=== PATIENT | male | born 1985 | race African-American/Black ===

== ENCOUNTER 2020-02-04 19:27 | Emergency (ER) | payer OTHER ==
[2020-02-04] MEDS ORDERED: MAG HYDROX/AL HYDROX/SIMETH SUSP 30 ML UDCUP PO ONE (20:32)
[2020-02-04] MEDS ORDERED: LIDOCAINE 2% VISCOUS SOLN 15 ML UDCUP PO ONE (20:32)
--- NOTE | 2020-02-04 20:33 | ER Document Report ---
ED Medical Screen (RME) - General Chief Complaint: Abdominal Pain Stated Complaint: UPPER ABDOMINAL PAIN Time Seen by Provider: 02/04/20 20:29 Mode of Arrival: Ambulatory Information source: Patient Notes: Patient presents complaining of upper abdominal pain for the past 3 days. Patient states earlier in the week he had nausea with vomiting although denies any vomiting today. Patient denies any fever or urinary symptoms. Patient states food makes the pain worse. I have greeted and performed a rapid initial assessment of this patient. A comprehensive ED assessment and evaluation of the patient, analysis of test results and completion of the medical decision making process will be conducted by additional ED providers. Physical Exam - Vital signs Vitals: Temp Pulse Resp BP Pulse Ox 98.3 F 81 16 134/88 H 98 02/04/20 19:40 02/04/20 19:40 02/04/20 19:40 02/04/20 19:40 02/04/20 19:40 - Abdominal Tenderness: Tender - Epigastric tenderness Course - Vital Signs Vital signs: Temp Pulse Resp BP Pulse Ox 98.3 F 81 16 134/88 H 98 02/04/20 19:40 02/04/20 19:40 02/04/20 19:40 02/04/20 19:40 02/04/20 19:40
[2020-02-04 21:07] LABS: ABSOLUTE EOSINOPHILS # (AUTO) 0.2 10^3/uL (0.0-0.6); ABSOLUTE LYMPHOCYTES (AUTO) 1.9 10^3/uL (0.5-4.7); ABSOLUTE MONOCYTES (AUTO) 1.1 10^3/uL (0.1-1.4); ABSOLUTE NEUT (AUTO) 8.1 10^3/uL (1.7-8.2); BASOPHILS % (AUTO) 0.3 % (0-2); EOSINOPHILS % (AUTO) 1.6 % (0-6); HEMATOCRIT 42.9 % (37.9-51.0); HEMOGLOBIN 14.7 g/dL (13.5-17.0); LYMPHOCYTES % (AUTO) 17.1 % (13-45); MEAN CORPUSCULAR HEMOGLOBIN 29.4 pg (27.0-33.4); MEAN CORPUSCULAR HGB CONC 34.2 g/dL (32.0-36.0); MEAN CORPUSCULAR VOLUME 86 fl (80-97); MONOCYTES % (AUTO) 9.7 % (3-13); PLATELET COUNT 229 10^3/uL (150-450); RED BLOOD COUNT 4.99 10^6/uL (4.35-5.55); RED CELL DISTRIBUTION WIDTH 14.6 % (11.5-14.0); SEGMENTED NEUTROPHILS % (AUTO) 71.3 % (42-78); TOTAL CELLS COUNTED % (AUTO) 100 %; WHITE BLOOD COUNT 11.4 10^3/uL (4.0-10.5)
[2020-02-04 21:33] LABS: ALBUMIN 4.8 g/dL (3.5-5.0); ALKALINE PHOSPHATASE 68 U/L (38-126); ANION GAP 9 (5-19); ASPARTATE AMINO TRANSFERASE 38 U/L (17-59); BILIRUBIN,DIRECT 0.3 mg/dL (0.0-0.4); BLOOD UREA NITROGEN 8 mg/dL (7-20); CALCIUM 10.4 mg/dL (8.4-10.2); CARBON DIOXIDE 29 mmol/L (22-30); CHLORIDE 101 mmol/L (98-107); GLUCOSE 102 mg/dL (75-110); POTASSIUM 3.9 mmol/L (3.6-5.0); TOTAL PROTEIN 7.5 g/dL (6.3-8.2)
--- NOTE | 2020-02-04 21:42 | RADIOLOGY REPORT (SQ) ---
EXAM DESCRIPTION: Ultrasound abdomen Limited CLINICAL HISTORY: 34 years Male upper abd pain TECHNIQUE: Right upper quadrant ultrasound was performed. COMPARISON: None. FINDINGS: Pancreas: Poorly visualized due to overlying bowel gas. Liver: Measures up to 16.4 cm. No focal mass identified. Portal venous flow is hepatopedal, normal. Gallbladder: normal with no gallstones or sonographic evidence for acute cholecystitis. No pericholecystic fluid. No sonographic Mora's sign. Gallbladder wall measures 2.2 mm. Common bile duct: 4.5 mm. Right kidney: Measures up to 9.8 cm. No hydronephrosis. IMPRESSION: 1. Normal right upper quadrant ultrasound.
[2020-02-04] MEDS ORDERED: MORPHINE SULFATE 10 MG/ML INJ IV ONE (23:03)
[2020-02-04] MEDS ORDERED: ONDANSETRON HCL INJ/PF 4 MG/2 ML SDV IV ONE (23:03)
--- NOTE | 2020-02-04 23:09 | ER Document Report ---
ED GI/ - General Chief Complaint: Abdominal Pain Stated Complaint: UPPER ABDOMINAL PAIN Time Seen by Provider: 02/04/20 20:29 Mode of Arrival: Ambulatory Notes: CHIEF COMPLAINT: Abdominal pain for 3 days HPI: 34-year-old male who is visiting from out of town over the last 2 weeks presenting for upper abdominal pain nausea vomiting with eating. Abdominal pain is worse with eating. Patient has been drinking 8 beers a day for the last 2 weeks and normally does drink almost daily when at home. Patient denies fever denies chest pain denies shortness of breath ROS: See HPI - all other systems were reviewed and are otherwise negative Constitutional: no fever Eyes: no drainage, no blurred vision ENT: no runny nose, no sore throat Cardiovascular: no chest pain Resp: no SOB, no cough GI: + vomiting, no diarrhea, + abdominal pain : no dysuria Integumentary: no rash Allergy: no hives Musculoskeletal: no extremity pain or swelling Neurological: no numbness/tingling, no weakness MEDICATIONS: I agree with the patient medications as charted by the RN. ALLERGIES: I agree with the allergies as charted by the RN. PAST MEDICAL HISTORY/PAST SURGICAL HISTORY: Reviewed and agree as charted by RN. SOCIAL HISTORY: Reviewed and agree as charted by RN. FAMILY HISTORY: No significant familial comorbid conditions directly related to patient complaint EXAM: Reviewed vital signs as charted by RN. CONSTITUTIONAL: Alert and oriented and responds appropriately to questions. Well-appearing; well-nourished HEAD: Normocephalic; atraumatic EYES: PERRL; Conjunctivae clear, sclerae non-icteric ENT: normal nose; no rhinorrhea; moist mucous membranes; pharynx without lesions noted, no uvula edema or deviation, no tonsillar hypertrophy, phonation normal NECK: Supple without meningismus; non-tender; no cervical lymphadenopathy, no masses CARD: RRR; no murmurs, no clicks, no rubs, no gallops; symmetric distal pulses RESP: Normal chest excursion without splinting or tachypnea; breath sounds clear and equal bilaterally; no wheezes, no rhonchi, no rales, pulse oximetry 97% on room air not hypoxic ABD/GI: Normal bowel sounds; non-distended; soft, mild tenderness in the epigastric left upper quadrant region on palpation, no rebound, no guarding; no palpable organomegaly or masses. BACK: The back appears normal and is non-tender to palpation, there is no CVA tenderness EXT: Normal ROM in all joints; non-tender to palpation; no cyanosis, no effusions, no edema SKIN: Normal color for age and race; warm; dry; good turgor; no acute lesions noted NEURO: Moves all extremities equally; Motor and sensory function intact PSYCH: The patient's mood and manner are appropriate. Grooming and personal hygiene are appropriate. MDM: EKG normal sinus rhythm with a ventricular rate of 69, CA 160, QT 376, QTc 403. There is a repolarization in V3 of V4. Abnormal EKG. Interpreted by emergency department physician. 34-year-old male with nausea vomiting epigastric and left upper quadrant abdominal pain. Lipase greater than 1300, patient does drink alcohol daily. Likely alcoholic pancreatitis. Ultrasound ordered via the triage process did not show evidence of gallstones. Patient other lab work does not show acute emergent abnormalities. will treat pain, obtain CT for pseudocyst or other abnormalities and reassess - Related Data Allergies/Adverse Reactions: No Known Allergies Allergy (Verified 02/05/20 01:58) Past Medical History - General Information source: Patient - Social History Smoking Status: Current Every Day Smoker Frequency of alcohol use: Occasional Drug Abuse: None Family History: Reviewed & Not Pertinent Patient has homicidal ideation: No Physical Exam - Vital signs Vitals: Temp Pulse Resp BP Pulse Ox 98.3 F 81 16 134/88 H 98 02/04/20 19:40 02/04/20 19:40 02/04/20 19:40 02/04/20 19:40 02/04/20 19:40 Course - Re-evaluation Re-evalutation: 02/05/20 01:52 Patient tolerating oral fluids and food with only minimal discomfort, no vomiting. Will place on Percocet, Zofran, refer to GI when he returns home. Return instructions discussed 02/05/20 01:53 Patient states that he would prefer to go home rather than be admitted at this time - Vital Signs Vital signs: Temp Pulse Resp BP Pulse Ox 98.3 F 81 16 134/88 H 98 02/04/20 19:40 02/04/20 19:40 02/04/20 19:40 02/04/20 19:40 02/04/20 19:40 - Laboratory Result Diagrams: 02/04/20 20:51 02/04/20 20:51 Laboratory results interpreted by me: 02/04/20 02/04/20 20:51 20:51 WBC 11.4 H RDW 14.6 H Calcium 10.4 H Lipase 1386.9 H Discharge - Discharge Clinical Impression: Pancreatitis Qualifiers: Chronicity: acute Pancreatitis type: alcohol induced Acute pancreatitis complication: unspecified Qualified Code(s): K85.20 - Alcohol induced acute pancreatitis without necrosis or infection Condition: Stable Disposition: HOME, SELF-CARE Additional Instructions: Low-fat low spice diet. Eat mostly bland foods. Clear liquids. No alcohol. Take the pain medication as prescribed, Zofran for nausea. Do not drive if taking narcotics for pain. Follow-up with gastroenterology when you return home for further evaluation and treatment. If you have uncontrolled pain at home or recurrent vomiting or fever return to the emergency department. Prescriptions: Oxycodone HCl/Acetaminophen [Percocet 5-325 mg Tablet] 1 tab PO Q4H PRN #15 tab PRN Reason: Ondansetron [Zofran Odt 4 mg Tablet] 1 - 2 tab PO Q4H PRN #15 tab.rapdis PRN Reason: For Nausea/Vomiting Referrals: HEMANT MONROY MD [ACTIVE STAFF] - Follow up as needed
--- NOTE | 2020-02-05 00:52 | RADIOLOGY REPORT (SQ) ---
EXAM DESCRIPTION: CT ABDOMEN PELVIS WITH IV CONTRAST COMPLETED DATE/TME: 02/04/2020 23:03 CLINICAL HISTORY: 34 years Male, sharp, constant pain to LEFT upper abdomen Comparison:Feb 04 2020, US Technique: IV contrast. Coronal and sagittal reformat. This exam was performed according to our departmental dose-optimization program, which includes automated exposure control, adjustment of the mA and/or kV according to patient size and/or use of iterative reconstruction technique. [facility]: Dose Right [facility]: CareDose [facility]: Dose Right [facility]: Teradose 4D [facility]: Traansmission LIMITATIONS: None Findings: Hepatic steatosis. Low attenuation diffuse bowel wall thickening suggestive of prior infectious/inflammatory insult. No ascites. No pneumoperitoneum. Normal appendix. No gross evidence of gallbladder inflammation, hepatobiliary obstruction, or portal vein defect. No bowel obstruction. No hydronephrosis or hydroureter. No renal/ureteral stone. No evidence of abdominal aortic aneurysm. No gross evidence of thecal sac/cord or nerve root compression. Inferior thorax, gallbladder, pancreas, spleen, adrenals, renal system, gastrointestinal tract, pelvic organs, lymphatics, vasculature, and musculoskeleton appear otherwise unremarkable. IMPRESSION: No acute findings.
[2020-02-05] MEDS ORDERED: OXYCODONE-ACETAMINOPHEN 5-325 MG TABLET PO ONE (01:51)
[2020-02-05 02:16] VITALS: BP 127/85
--- NOTE | 2020-02-05 17:55 | EKG REPORT ---
SEVERITY:- ABNORMAL ECG - SINUS RHYTHM ST ELEVATION SUGGESTS PERICARDITIS : Confirmed by: Carlos A Olmstead MD 05-Feb-2020 17:54:33
== END 2020-02-05 02:35 | disposition home or self-care (01) ==
LOC: ER 19:27
DX: K85.20 Alcohol induced acute pancreatitis without necrosis or infection (principal); R94.31 Abnormal electrocardiogram [ECG] [EKG]; R11.2 Nausea with vomiting, unspecified; R10.13 Epigastric pain; R10.812 Left upper quadrant abdominal tenderness; F17.200 Nicotine dependence, unspecified, uncomplicated
CPT/HCPCS: 93005; 99285; 96374; 96375; 36415; 83690; 85025; 80053; 84484; 76705; 74177; 93010; J3490; J2270; J2405